=== PATIENT | male | born 1940 | race Caucasian/White ===

== ENCOUNTER 2016-11-08 17:17 | Inpatient (IN) | payer MEDICARE, BC ==
[~2016-11-08] VITALS: Ht 175.3 cm; Wt 61.8 kg
[2016-11-08] MEDS ORDERED: SODIUM CHLORIDE 0.9% 1,000 ML ONE (18:21)
[2016-11-08 23:32] VITALS: BP_SYST 146; BP_SYST 150; RESP 20; TEMP 100.8
[2016-11-08 23:35] VITALS: BMI 20.1
[2016-11-09] MEDS: CEFTRIAXONE 1 GM in SODIUM CHLORIDE 0.9% 50 ML IV SCH ×2 (00:08→08:30)
[2016-11-09] MEDS: METRONIDAZOLE 500 MG TAB PO SCH ×4 (00:08→21:55)
[2016-11-09] MEDS ORDERED: SALINE FLUSH 10 ML FLUSH PRN (02:35)
[2016-11-09] MEDS: SODIUM CHLORIDE 0.9% FLUSH BAG 500 ML IV SCH (05:45)
[2016-11-09 07:49] VITALS: BP_SYST 168; RESP 18; RESP 87; TEMP 98
[2016-11-09] MEDS: SALINE FLUSH 10 ML FLUSH SCH ×2 (08:30→15:49)
[2016-11-09] MEDS ORDERED: ONDANSETRON ODT 4 MG TAB PO PRN (09:30)
[2016-11-09] MEDS: LISINOPRIL 10 MG TAB PO SCH (10:27)
[2016-11-09] MEDS: CETIRIZINE 10 MG TAB PO SCH (10:28)
[2016-11-09] MEDS: amLODIPine 10 MG TAB PO SCH (10:28)
[2016-11-09] MEDS: KCL CR 10 MEQ TAB PO SCH ×3 (10:28→21:56)
[2016-11-09] MEDS: Meclizine HCl 25 MG TAB PO SCH ×3 (10:29→21:56)
[2016-11-09] MEDS: FAMOTIDINE 20 MG TAB PO SCH ×2 (10:29→21:56)
[2016-11-09 11:41] VITALS: BP_SYST 138; RESP 18; TEMP 98.7
[2016-11-09] MEDS: TRAMADOL 50 MG TAB PO PRN (13:59)
[2016-11-09 14:13] VITALS: BP_SYST 132; RESP 16; TEMP 97.1
[2016-11-09 15:27] VITALS: BP_SYST 130; RESP 20; TEMP 98.9
[2016-11-09] MEDS: METHYLPRED SOD SUCC 40 MG VIAL IV SCH (15:47)
[2016-11-09 19:36] VITALS: BP_SYST 120; RESP 20; TEMP 98.9
[2016-11-09] MEDS: ROSUVASTATIN 5 MG TAB PO SCH (21:56)
[2016-11-10 00:49] VITALS: BP_SYST 114; RESP 18; TEMP 98.5
[2016-11-10] MEDS: METHYLPRED SOD SUCC 40 MG VIAL IV SCH ×2 (01:09→09:10)
[2016-11-10 04:33] VITALS: BP_SYST 122; RESP 18; TEMP 98.2
[2016-11-10] MEDS: SODIUM CHLORIDE 0.9% FLUSH BAG 500 ML IV SCH (06:46)
[2016-11-10 07:51] VITALS: BP_SYST 142; RESP 16; TEMP 96
[2016-11-10] MEDS: SALINE FLUSH 10 ML FLUSH SCH ×2 (09:08→20:52)
[2016-11-10] MEDS: CEFTRIAXONE 1 GM in SODIUM CHLORIDE 0.9% 50 ML IV SCH (09:10)
[2016-11-10] MEDS: METRONIDAZOLE 500 MG TAB PO SCH ×3 (09:10→20:51)
[2016-11-10] MEDS: CETIRIZINE 10 MG TAB PO SCH (09:10)
[2016-11-10] MEDS: LISINOPRIL 10 MG TAB PO SCH (09:11)
[2016-11-10] MEDS: FAMOTIDINE 20 MG TAB PO SCH ×2 (09:11→20:51)
[2016-11-10] MEDS: KCL CR 10 MEQ TAB PO SCH ×3 (09:11→20:51)
[2016-11-10] MEDS: Meclizine HCl 25 MG TAB PO SCH ×3 (09:11→20:51)
[2016-11-10] MEDS: amLODIPine 10 MG TAB PO SCH (09:11)
[2016-11-10 11:21] VITALS: BP_SYST 144; RESP 16; TEMP 97.6
[2016-11-10 14:34] VITALS: Ht 175.3 cm; Wt 61.8 kg
[2016-11-10 16:09] VITALS: BP_SYST 130; RESP 18; TEMP 97.7
[2016-11-10 19:25] VITALS: BP_SYST 140; RESP 18; TEMP 97.8
[2016-11-10] MEDS: ROSUVASTATIN 5 MG TAB PO SCH (20:51)
[2016-11-11] VITALS (7 sets, daily range): BP systolic 118–158; RESP 18–20; TEMP 97.4–100.5
[2016-11-11] MEDS: SODIUM CHLORIDE 0.9% FLUSH BAG 500 ML IV SCH (06:00)
[2016-11-11] MEDS: TRAMADOL 50 MG TAB PO PRN ×3 (08:48→22:20)
[2016-11-11] MEDS: SALINE FLUSH 10 ML FLUSH SCH ×2 (09:16→21:34)
[2016-11-11] MEDS: LISINOPRIL 10 MG TAB PO SCH (09:18)
[2016-11-11] MEDS: KCL CR 10 MEQ TAB PO SCH ×3 (09:18→21:34)
[2016-11-11] MEDS: amLODIPine 10 MG TAB PO SCH (09:18)
[2016-11-11] MEDS: METRONIDAZOLE 500 MG TAB PO SCH ×2 (09:19→15:56)
[2016-11-11] MEDS: CETIRIZINE 10 MG TAB PO SCH (09:19)
[2016-11-11] MEDS: Meclizine HCl 25 MG TAB PO SCH ×3 (09:19→21:35)
[2016-11-11] MEDS: FAMOTIDINE 20 MG TAB PO SCH ×2 (09:20→21:34)
[2016-11-11] MEDS: ACETAMINOPHEN 325 MG TAB PO PRN (16:18)
[2016-11-11] MEDS: ROSUVASTATIN 5 MG TAB PO SCH (21:34)
[2016-11-12] MEDS: ACETAMINOPHEN 325 MG TAB PO PRN (02:25)
[2016-11-12 03:36] VITALS: BP_SYST 138; RESP 18; TEMP 98.9
[2016-11-12] MEDS: SODIUM CHLORIDE 0.9% FLUSH BAG 500 ML IV SCH (05:51)
[2016-11-12 07:33] VITALS: BP_SYST 130; RESP 18; TEMP 97.4
[2016-11-12] MEDS ORDERED: MISSING DOSE XX ONE (07:55)
[2016-11-12] MEDS: SALINE FLUSH 10 ML FLUSH SCH (08:20)
[2016-11-12] MEDS: FAMOTIDINE 20 MG TAB PO SCH (08:21)
[2016-11-12] MEDS: LISINOPRIL 10 MG TAB PO SCH (08:21)
[2016-11-12] MEDS: CETIRIZINE 10 MG TAB PO SCH (08:21)
[2016-11-12] MEDS: KCL CR 10 MEQ TAB PO SCH (08:21)
[2016-11-12] MEDS: Meclizine HCl 25 MG TAB PO SCH (08:21)
[2016-11-12] MEDS: amLODIPine 10 MG TAB PO SCH (08:22)
[2016-11-12] MEDS: TRAMADOL 50 MG TAB PO PRN (08:29)
[2016-11-12 10:14] VITALS: BP_SYST 132; RESP 18; TEMP 97.6
[2016-11-12 10:36] VITALS: BP_SYST 132; RESP 18; TEMP 97.6
== END 2016-11-12 11:24 | disposition home or self-care (01) | DRG 864 ==
LOC: ENRESERVDT → ENRESERVTM → ER 17:17 → EMR 22:02 → ENPENDDIS 22:02 → 4NT 23:27
PROVIDERS: ADMIT Internal Medicine Hematology & Oncology; ATTEND Internal Medicine Hematology & Oncology
DX: R50.2 Drug induced fever (principal); C91.10 Chronic lymphocytic leukemia of B-cell type not having achieved remission; T50.995A Adverse effect of other drugs, medicaments and biological substances, initial encounter; I10 Essential (primary) hypertension; E78.00 Pure hypercholesterolemia, unspecified; Z85.828 Personal history of other malignant neoplasm of skin; N20.0 Calculus of kidney; M19.90 Unspecified osteoarthritis, unspecified site
CPT/HCPCS: 36415; 71010; 80053; 81001; 83605; 85025; 85610; 85730; 87040; 87071; 87077; 87088; 87186; 87493